=== PATIENT | male | born 2000 | race African-American/Black ===

== ENCOUNTER 2024-05-29 22:42 | Emergency (ER) | payer SELFPAY ==
[2024-05-30] MEDS: Diphtheria,Pertussis(Acell),Tetanus Vaccine 0.5 ML Syringe IM ONE (01:32)
[2024-05-30] MEDS: Bacitracin Oint 1 GM U/D Packet TOP ONE (01:38)
[2024-05-30 04:46] LABS: HIV12 AG/AB 4TH GEN W/REFLEX 0.2 INDEX (<1.0)
[2024-06-01 18:03] LABS: HBC IGM Negative (Negative)
== END 2024-05-30 01:51 ==
LOC: MW.ED 22:42
DX: S20.212A Contusion of left front wall of thorax, initial encounter (principal); S60.511A Abrasion of right hand, initial encounter; S60.512A Abrasion of left hand, initial encounter; Z23 Encounter for immunization; W01.198A Fall on same level from slipping, tripping and stumbling with subsequent striking against other object, initial encounter; Y93.02 Activity, running
CPT/HCPCS: 36415; 71101-26-LT; 71101-LT; 731202650; 73120-50; 86705; 86803; 87340; 87389; 90471; 90715; 99284-25

== ENCOUNTER 2024-10-31 17:15 | Emergency (ER) | payer SELFPAY | END 2024-10-31 20:58 | disposition left against medical advice (07) | LOC: MW.ED 17:15 | DX: Z53.21 Procedure and treatment not carried out due to patient leaving prior to being seen by health care provider (principal) ==